=== PATIENT | male | born 1950 | race African-American/Black ===

== ENCOUNTER 2023-04-11 21:37 | Inpatient (IN) | payer OTHER, MEDICARE ==
[~2023-04-11] VITALS: Ht 182.9 cm; Wt 83.9 kg
[2023-04-11 22:54] LABS: BASOPHILS % 0.7 % (0.0-2.0); EOSINOPHILS % 0.1 % (0.0-5.0); HEMATOCRIT. 34.9 % (42.0-52.0); HEMOGLOBIN. 11.2 g/dL (14.0-18.0); LYMPHOCYTES % 18.3 % (20.0-50.0); MEAN CORPUSCULAR HEMOGLOBIN 30.3 pg (28.0-32.0); MEAN CORPUSCULAR VOLUME 94.6 fL (80.0-94.0); MEAN PLATELET VOLUME 7.6 fl (7.4-10.4); MONOCYTES % 7.2 % (2.0-8.0); NEUTROPHILS % 73.7 % (40.0-76.0); PLATELET 289 x1000/uL (130-400); RED BLOOD CELL COUNT 3.69 mill/uL (4.7-6.1); RED CELL DISTRIBUTION WIDTH 16.4 % (11.6-14.6); WHITE BLOOD COUNT 8.2 x1000/uL (4.5-11.0)
[2023-04-11 23:04] LABS: PROTHROMBIN TIME 10.7 sec (9.6-11.0)
[2023-04-11 23:10] LABS: ALANINE AMINOTRANSFERASE 123 IU/L (10-49); ALBUMIN 4.3 g/dL (3.2-4.8); ASPARTATE AMINOTRANSFERASE 183 IU/L (<34); BILIRUBIN TOTAL 0.4 mg/dL (0.1-1.0); CALCIUM 9.5 mg/dL (8.7-10.4); CARBON DIOXIDE 18 mEq/L (21-32); CHLORIDE 98 mEq/L (98-107); CREATININE 1.2 mg/dL (0.6-1.3); ETHANOL BLOOD 123 mg/dL (<10); GLUCOSE 56 mg/dL (70-105); POTASSIUM 4.4 mEq/L (3.5-5.1); PROTEIN TOTAL 7.4 g/dL (6.0-8.3); SODIUM 132 mEq/L (136-145); TROPONIN I HIGH SENSITIVITY 8 ng/L (3.0-53); UREA NITROGEN BLOOD 18 mg/dL (9-23)
[2023-04-11] MEDS ORDERED: SODIUM CHLORIDE 0.9% 1,000 ML IV ONE (23:30)
[2023-04-12 00:37] LABS: TROPONIN I HIGH SENSITIVITY 9 ng/L (3.0-53)
[2023-04-12 01:58] LABS: TROPONIN I HIGH SENSITIVITY 10 ng/L (3.0-53)
[2023-04-12] MEDS ORDERED: LIDOCAINE HCL/PF 1% 10 MG/ML 5ML VIAL INFIL ONE (03:00)
[2023-04-12] MEDS ORDERED: TETANUS, DIPHTHERIA, PERTUSSIS VAC/PF 0.5ML (>10YR OLD) IM ONE (03:00)
[2023-04-12] MEDS ORDERED: DIAZEPAM 5 MG/ML 2ML CPJ IV NR (03:30)
[2023-04-12] MEDS ORDERED: LEVETIRACETAM 500MG PREMIX 100 ML IV ONE (04:30)
[2023-04-12] MEDS ORDERED: CHLORDIAZEPOXIDE 25MG CAPSULE PO NR (05:00)
[2023-04-12] MEDS ORDERED: LACTATED RINGERS 1,000 ML IV ONE (05:00)
[2023-04-12 05:36] LABS: CLARITY URINE CLEAR (CLEAR); COLOR URINE YELLOW (YELLOW); GLUCOSE URINE NEGATIVE (NEGATIVE); KETONES URINE 2+ (NEGATIVE); LEUKOCYTE ESTERASE URINE NEGATIVE (NEGATIVE); NITRITE URINE NEGATIVE (NEGATIVE); OCCULT BLOOD URINE NEGATIVE (NEGATIVE); PROTEIN URINE NEGATIVE (NEGATIVE); SPECIFIC GRAVITY URINE 1.015 (1.005-1.030); UROBILINOGEN URINE 0.2 E.U./dL (0.2-1.0)
[2023-04-12 05:48] LABS: *AMPHETAMINES SCREEN URINE NEGATIVE (NEGATIVE); *BARBITURATES SCREEN URINE NEGATIVE (NEGATIVE); *BENZODIAZEPINES SCREEN URINE NEGATIVE (NEGATIVE); *COCAINE SCREEN URINE NEGATIVE (NEGATIVE); CANNABINOID URINE SCREEN NEGATIVE (NEGATIVE); ECSTASY MDMA SCREEN URINE NEGATIVE (NEGATIVE); METHADONE URINE SCREEN Neg (NEGATIVE); OPIATES URINE SCREEN NEGATIVE (NEGATIVE); PHENCYCLIDINE URINE SCREEN NEGATIVE (NEGATIVE)
[2023-04-12] MEDS ORDERED: DOCUSATE SODIUM 100MG CAPSULE PO PRN (09:30)
[2023-04-12] MEDS ORDERED: ACETAMINOPHEN 325MG TABLET PO PRN ×2 (09:30)
[2023-04-12] MEDS ORDERED: MAGNESIUM/ALUMINUM HYDROXIDE/SIMETHICONE 30ML UDC PO PRN (09:30)
[2023-04-12] MEDS ORDERED: CLONIDINE 0.1MG TABLET PO PRN (09:30)
[2023-04-12] MEDS ORDERED: GUAIFENESIN 200MG/10ML SUGAR FREE UDC PO PRN (09:30)
[2023-04-12] MEDS ORDERED: ONDANSETRON HCL 4MG/2ML INJ IV PRN (09:30)
[2023-04-12] MEDS ORDERED: IPRATROPIUM/ALBUTEROL 0.5-3(2.5)MG/3ML NEB HHN PRN (09:30)
[2023-04-12] MEDS ORDERED: THIAMINE HCL 100 MG in SODIUM CHLORIDE 0.9% 49 ML IV NR (10:00)
[2023-04-12] MEDS: DEXT 5%/0.45% NACL 1000ML 1,000 ML IV SCH ×2 (15:17→23:31)
[2023-04-12] MEDS: PANTOPRAZOLE SODIUM 40 MG/VIAL IV SCH (15:17)
[2023-04-12 15:49] LABS: D-DIMER 0.7 mg/L FEU (<0.50); PROTHROMBIN TIME 10.8 sec (9.6-11.0)
[2023-04-12 15:58] LABS: CREATINE KINASE 235 IU/L (46-171); CREATINE KINASE MB FRACTION 4.3 ng/mL (0.5-3.6); TROPONIN I HIGH SENSITIVITY 9 ng/L (3.0-53)
[2023-04-12 16:00] VITALS: BP 170/99; PULSE 97; RESP 20; TEMP 97.9
[2023-04-12] MEDS ORDERED: HYDR-4134 PO (17:03)
[2023-04-12] MEDS ORDERED: ROSU5TAB PO (17:03)
[2023-04-12] MEDS: AMLODIPINE 10MG TABLET PO SCH (17:14)
[2023-04-12 17:21] VITALS: BP 170/99; PULSE 97; RESP 20; TEMP 97.9
[2023-04-12 20:00] VITALS: BP 118/79; PULSE 98; RESP 19; TEMP 97.8
[2023-04-13] VITALS: BP 109/67; PULSE 91; RESP 19; TEMP 97.8
[2023-04-13 00:51] LABS: CREATINE KINASE 239 IU/L (46-171); CREATINE KINASE MB FRACTION 3.1 ng/mL (0.5-3.6); TROPONIN I HIGH SENSITIVITY 8 ng/L (3.0-53)
[2023-04-13 04:00] VITALS: BP 106/64; RESP 18; TEMP 98.6
[2023-04-13 07:52] LABS: BASOPHILS % 0.7 % (0.0-2.0); EOSINOPHILS % 1.2 % (0.0-5.0); HEMATOCRIT. 30.7 % (42.0-52.0); LYMPHOCYTES % 31.4 % (20.0-50.0); MEAN CORPUSCULAR HEMOGLOBIN 30.2 pg (28.0-32.0); MEAN CORPUSCULAR HGB CONC 32.5 g/dL (31.0-37.0); MEAN CORPUSCULAR VOLUME 92.7 fL (80.0-94.0); NEUTROPHILS % 56.7 % (40.0-76.0); PLATELET 231 x1000/uL (130-400); RED BLOOD CELL COUNT 3.31 mill/uL (4.7-6.1); RED CELL DISTRIBUTION WIDTH 15.9 % (11.6-14.6); WHITE BLOOD COUNT 5.2 x1000/uL (4.5-11.0)
[2023-04-13 08:00] VITALS: BP 135/84; PULSE 98; RESP 18; TEMP 97
[2023-04-13] MEDS: PANTOPRAZOLE SODIUM 40 MG/VIAL IV SCH (08:21)
[2023-04-13] MEDS: AMLODIPINE 10MG TABLET PO SCH (08:22)
[2023-04-13 08:46] LABS: ALANINE AMINOTRANSFERASE 80 IU/L (10-49); ALBUMIN 3.7 g/dL (3.2-4.8); ASPARTATE AMINOTRANSFERASE 88 IU/L (<34); BILIRUBIN TOTAL 0.7 mg/dL (0.1-1.0); CALCIUM 9.1 mg/dL (8.7-10.4); CARBON DIOXIDE 25 mEq/L (21-32); CHLORIDE 105 mEq/L (98-107); CHOLESTEROL 152 mg/dL (<200); GLUCOSE 108 mg/dL (70-105); HDL CHOLESTEROL 56 mg/dL (>55); LDL CHOLESTEROL 74 mg/dL (5-100); POTASSIUM 3.8 mEq/L (3.5-5.1); PROTEIN TOTAL 6.3 g/dL (6.0-8.3); SODIUM 136 mEq/L (136-145); T4 FREE 0.98 ng/dL (0.89-1.76); THYROID STIMULATING HORMONE 3.62 uIU/mL (0.55-4.78); TRIGLYCERIDE 78 mg/dL (0-150); UREA NITROGEN BLOOD 15 mg/dL (9-23)
[2023-04-13 12:00] VITALS: BP 97/67; PULSE 93; RESP 18; TEMP 97.7
[2023-04-13] MEDS: DEXT 5%/0.45% NACL 1000ML 1,000 ML IV SCH (13:11)
[2023-04-13 13:39] VITALS: BP 97/67; PULSE 93; TEMP 97.7; O2SAT 98
== END 2023-04-13 16:51 | disposition home or self-care (01) | DRG 83 ==
LOC: ER 21:37 → EDBEDREQSVC 04-12 10:00 → 8WST 04-12 16:46
PROVIDERS: ADMIT Internal Medicine; ATTEND Internal Medicine
DX: S06.6X9A Traumatic subarachnoid hemorrhage with loss of consciousness of unspecified duration, initial encounter (principal); N17.9 Acute kidney failure, unspecified; E78.00 Pure hypercholesterolemia, unspecified; I10 Essential (primary) hypertension; R74.8 Abnormal levels of other serum enzymes; F10.10 Alcohol abuse, uncomplicated; F17.200 Nicotine dependence, unspecified, uncomplicated; Z79.899 Other long term (current) drug therapy; W18.30XA Fall on same level, unspecified, initial encounter; Y93.89 Activity, other specified; Y92.89 Other specified places as the place of occurrence of the external cause; Y99.8 Other external cause status
CPT/HCPCS: 36415; 71045; 80053; 80061; 80305; 80320; 81003; 82550; 82553; 84439; 84443; 84484; 85025; 85379; 93005; 93970; 99291; C9113; J1953; J3411; J3490; J7030; G0480